=== PATIENT | female | born 1960 | race Caucasian/White ===

== ENCOUNTER 2017-01-07 12:51 | Emergency (ER) | payer BC ==
[2017-01-07 13:27] VITALS: BP 125/81
--- NOTE | 2017-01-07 13:42 | EDM.PDOC ---
ED HPI GENERAL MEDICAL PROBLEM - General Chief Complaint: General Stated Complaint: Abcess tooth Time Seen by Provider: 01/07/17 13:28 Source of Information: Reports: Patient History Limitations: Reports: No Limitations - History of Present Illness INITIAL COMMENTS - FREE TEXT/NARRATIVE: Patient is a 56 year old woman who has had a one week history of left lower molar pain that is getting worse. This morning part of the tooth fell off and her pain got worse, so she came in to get help. Onset: Today Onset Date: 12/31/16 Onset Time: 07:00 Duration: Day(s): (7) Location: Reports: Other (Left lower molar is sore.) Quality: Reports: Ache Severity: Moderate Improves with: Reports: None Worsens with: Reports: None Context: Reports: Other Associated Symptoms: Reports: No Other Symptoms Treatments AN/SQQ 89(V)15 [employer]: Reports: Acetaminophen, NSAIDS, Other (see below) Other Treatments AN/SQQ 89(V)15 [employer]: Advill 1 tab 1 hour AN/SQQ 89(V)15 [employer] Left Lower Oral/Mouth Pain Score (Numeric/FACES): 5 - Related Data Allergies Allergy/AdvReac Type Severity Reaction Status Date / Time No Known Allergies Allergy Verified 01/07/17 13:23 Home Meds: Home Meds NK [No Known Home Meds] 01/07/17 [History] ED ROS GENERAL - Review of Systems Review Of Systems: See Below Constitutional: Reports: No Symptoms HEENT: Reports: No Symptoms Respiratory: Reports: No Symptoms Cardiovascular: Reports: No Symptoms Endocrine: Reports: No Symptoms GI/Abdominal: Reports: No Symptoms : Reports: No Symptoms Musculoskeletal: Reports: No Symptoms Skin: Reports: No Symptoms Neurological: Reports: No Symptoms Psychiatric: Reports: No Symptoms Hematologic/Lymphatic: Reports: No Symptoms Immunologic: Reports: No Symptoms ED EXAM, GENERAL - Physical Exam Exam: See Below Exam Limited By: No Limitations General Appearance: Alert, WD/WN, No Apparent Distress Eye Exam: Bilateral Eye: EOMI, Normal Fundi, Normal Inspection, PERRL Ears: Normal External Exam, Normal Canal, Hearing Grossly Normal, Normal TMs Ear Exam: Bilateral Ear: Auricle Normal, Canal Normal, TM normal Nose: Normal Inspection, Normal Mucosa, No Blood Throat/Mouth: Normal Lips, Normal Oropharynx, Normal Voice, No Airway Compromise , Other (Left second molar is broken and very tender to palpation.) Head: Atraumatic, Normocephalic Neck: Normal Inspection, Supple, Non-Tender, Full Range of Motion Respiratory/Chest: No Respiratory Distress, Lungs Clear, Normal Breath Sounds, No Accessory Muscle Use, Chest Non-Tender Cardiovascular: Normal Peripheral Pulses, Regular Rate, Rhythm, No Edema, No Gallop, No JVD, No Murmur, No Rub GI/Abdominal: Normal Bowel Sounds, Soft, Non-Tender, No Organomegaly, No Distention, No Abnormal Bruit, No Mass Back Exam: Normal Inspection, Full Range of Motion, NT Extremities: Normal Inspection, Normal Range of Motion, Non-Tender, Normal Capillary Refill, No Pedal Edema Neurological: Alert, Oriented, CN II-XII Intact, Normal Cognition, Normal Gait, Normal Reflexes, No Motor/Sensory Deficits Psychiatric: Normal Affect, Normal Mood Skin Exam: Warm, Dry, Intact, Normal Color, No Rash Lymphatic: No Adenopathy Course - Vital Signs Text/Narrative:: Uneventful ED course. She was given Amoxicillin 500 mg po tid x 10 days, #30. Ibuprofen 800 mg po q 6 hours, Tylenol 500 mg po q 4 hours and she will see her dentist next week. Last Recorded V/S: Last Vital Signs Temp 36.6 C 01/07/17 13:18 Pulse 63 01/07/17 13:18 Resp 20 01/07/17 13:18 BP 125/81 01/07/17 13:18 Pulse Ox 99 01/07/17 13:18 Departure - Departure Time of Disposition: 13:50 Disposition: DC/Tfer to Hospice - Home 50 Condition: Good Clinical Impression: Dental abscess, Pain - Discharge Information Forms: ED Department Discharge
[2017-01-07] MEDS ORDERED: Amoxicillin 500 MG Cap ONE (13:50)
== END 2017-01-07 13:54 | disposition home or self-care (01) ==
LOC: LB.ED 12:51
DX: K04.7 Periapical abscess without sinus (principal)
CPT/HCPCS: 99282; A9270